=== PATIENT | female | born 1950 | race Caucasian/White ===

== ENCOUNTER 2017-01-24 03:54 | Inpatient (IN) | payer BC ==
[~2017-01-24] VITALS: Ht 152.4 cm; Wt 90.6 kg
[~2017-01-24 03:54] MED LIST: ABILIFY5 MG PO; ADVAIR 500/501 DISK IH; BYSTOLIC10 MG PO; CLONAZEPAM1 MG PO; DEXILANT60 MG PO; EFFEXOR XR75 MG PO; IMURAN50 MG PO; JANUMET XR 50-1 EAC1 PO; PREDNISONE5 MG PO; REQUIP0.25 MG PO; SPIRIVA1 INHALATI IH; TRAMADOL HCL50 MG PO; VITAMIN D2000 UNIT PO; WELCHOL625 MG PO
[2017-01-24] MEDS ORDERED: FENOFIBRATE145 M1 PO (04:33)
[2017-01-24] MEDS ORDERED: LASIX20 MG PO (04:35)
[2017-01-24] MEDS ORDERED: GLIMEPIRIDE4 MG PO (04:36)
[2017-01-24] MEDS ORDERED: LANTUS 10100 UNITS/ SC (04:37)
[2017-01-24] MEDS ORDERED: NOVOLOG PE100 UNITS/ SC (04:38)
[2017-01-24 04:39] LABS: EOSINOPHIL (%) 0.1 % (0-5); IMMATURE GRANULOCYTE COUNT 0.1 K/uL; INSTRUMENT ABS NEUTROPHIL CT 8.2 K/uL; LYMPHOCYTE COUNT 0.6 K/uL (1.0-2.8); MCH 28.8 PG (29.0-34.0); MCHC 31.4 G/DL (30.0-36.0); MCV 91.9 FL (83-99); MEAN PLAT.VOLUME 10.4 uM^3 (9.5-12.4); MONOCYTE (%) 5.9 % (3-12); MONOCYTE COUNT 0.6 K/uL (0-0.8); NEUTROPHIL (%) 86.5 % (45-76); NEUTROPHIL COUNT 8.2 K/uL (1.8-6.4); PLATELET COUNT 275 K/uL (156-360); RBC DIS.WIDTH-CV 15.5 % (11.8-14.6); RBC DIS.WIDTH-SD 51.8 % (39-53); RED BLOOD COUNT 4.68 M/uL (3.80-5.20); WHITE BLOOD COUNT 9.5 K/uL (4.1-10.2)
[2017-01-24] MEDS ORDERED: PROAIR RESPICL90 MCG IH (04:40)
[2017-01-24 04:48] LABS: CHLORIDE 105 mEq/L (99-109); POTASSIUM 4.3 mEq/L (3.7-5.4); SODIUM 141 mEq/L (136-147)
[2017-01-24 04:50] LABS: GLUCOSE 146 mg/dL (70-99)
[2017-01-24 04:51] LABS: ANION GAP 14 MEQ/L (2-14)
[2017-01-24 04:53] LABS: GFR ESTIMATE (CALCULATED) 48 mL/min/
[2017-01-24 04:54] LABS: UREA NITROGEN (BUN) 14 mg/dL (9-23)
[2017-01-24 05:00] LABS: TROP-I INTERPRETATION NEGATIVE; TROPONIN-I < 0.01 ng/mL (0.0-0.30)
[2017-01-24 07:25] LABS: POINT-OF-CARE METER ID UU13113702
[2017-01-24] MEDS ORDERED: VITAMIN D2000 UNI1 PO (09:01)
[2017-01-24] MEDS ORDERED: REFRESH EYE DR1 EACH BOTH EYES (09:01)
[2017-01-24] MEDS ORDERED: ALIGN4 MG PO (09:04)
[2017-01-24] MEDS ORDERED: ATROVENT 00.5 MG/2.5 IH (09:05)
[2017-01-24 11:32] LABS: POINT-OF-CARE METER ID UU13113702
[2017-01-24 15:28] VITALS: BP 107/55
[2017-01-24 19:32] VITALS: BP 108/61
[2017-01-24 23:54] VITALS: BP 121/62
[2017-01-25 04:15] VITALS: BP 122/69
[2017-01-25 07:20] VITALS: BP 113/56
[2017-01-25 07:28] LABS: ANION GAP 7 MEQ/L (2-14); CHLORIDE 103 MEQ/L (99-109); GFR ESTIMATE (CALCULATED) 53 mL/min/; GLUCOSE 188 mg/dL (70-99); POTASSIUM 5.1 MEQ/L (3.7-5.4); SAMPLE HEMOLYSIS CHECK 0; SAMPLE ICTERIC CHECK 0; SAMPLE LIPEMIA CHECK 0; SODIUM 141 MEQ/L (136-147); UREA NITROGEN (BUN) 21 mg/dL (9-23)
[2017-01-25 08:01] LABS: HEMATOCRIT 40.4 % (36.0-46.0); MCH 28.8 PG (29.0-34.0); MCHC 30.9 G/DL (30.0-36.0); MCV 93.1 FL (83-99); PLATELET COUNT 289 K/uL (156-360); RBC DIS.WIDTH-CV 15.7 % (11.8-14.6); RBC DIS.WIDTH-SD 53.6 % (39-53); RED BLOOD COUNT 4.34 M/uL (3.80-5.20); WHITE BLOOD COUNT 11.3 K/uL (4.1-10.2)
[2017-01-25 08:16] LABS: ALKALINE PHOSPHATASE 39 IU/L (3-129); TOTAL BILIRUBIN 0.3 MG/DL (0.0-1.0)
[2017-01-25 09:07] LABS: DIRECT BILIRUBIN 0.1 mg/dL (0.0-0.3)
[2017-01-25 11:42] VITALS: BP 129/70
[2017-01-25 13:07] LABS: POINT-OF-CARE METER ID UU14162508
[2017-01-25 13:47] LABS: ADD MIUA? YES; BILIRUBIN NEGATIVE; BLOOD MODERATE; COLOR YELLOW ((YELLOW)); GLUCOSE (STRIP) 150; KETONES NEGATIVE; LEUKOCYTES LARGE; NITRITE NEGATIVE; PROTEIN (STRIP) 30; UROBILINOGEN 0.2 MG/DL (0.2-1.0)
[2017-01-25 14:51] LABS: EPITHELIAL CELLS 1+ /HPF; RED BLOOD CELLS 0-5 /HPF (0-5); WHITE BLOOD CELLS TNTC /HPF (0-5)
[2017-01-25 14:52] LABS: BACTERIA NONE SEEN /HPF; CASTS NONE SEEN /LPF; CRYSTALS NONE SEEN; MUCUS NONE SEEN /LPF; OTHER YEAST 3+; UCUL ADDED? YES
[2017-01-25 16:09] VITALS: BP 124/69
[2017-01-25 17:27] LABS: POINT-OF-CARE METER ID UU14162508
[2017-01-25 19:35] VITALS: BP 110/58
[2017-01-25 23:25] VITALS: BP 116/62
[2017-01-26 03:57] VITALS: BP 108/62
[2017-01-26 07:02] LABS: HEMATOCRIT 37.5 % (36.0-46.0); MCH 29.1 PG (29.0-34.0); MCHC 30.9 G/DL (30.0-36.0); MCV 94.2 FL (83-99); MEAN PLAT.VOLUME 10.9 uM^3 (9.5-12.4); PLATELET COUNT 261 K/uL (156-360); RBC DIS.WIDTH-CV 15.8 % (11.8-14.6); RBC DIS.WIDTH-SD 54.8 % (39-53); RED BLOOD COUNT 3.98 M/uL (3.80-5.20); WHITE BLOOD COUNT 9.4 K/uL (4.1-10.2)
[2017-01-26 07:07] VITALS: BP 106/55
[2017-01-26 07:20] LABS: ANION GAP 5 MEQ/L (2-14); CHLORIDE 104 MEQ/L (99-109); GFR ESTIMATE (CALCULATED) 53 mL/min/; GLUCOSE 161 mg/dL (70-99); MAGNESIUM 1.9 mg/dl (1.3-2.7); POTASSIUM 5.1 MEQ/L (3.7-5.4); SAMPLE HEMOLYSIS CHECK 0; SAMPLE ICTERIC CHECK 0; SAMPLE LIPEMIA CHECK 0; SODIUM 140 MEQ/L (136-147); UREA NITROGEN (BUN) 30 mg/dL (9-23)
[2017-01-26 08:10] LABS: INTERNAL CONTROL VALID? YES
[2017-01-26 12:31] VITALS: BP 99/54
[2017-01-26 16:33] VITALS: BP 111/63
[2017-01-26 19:33] VITALS: BP 114/73
[2017-01-26 23:18] VITALS: BP 121/72
[2017-01-27 03:24] VITALS: BP 136/68
[2017-01-27 08:00] VITALS: BP 114/58
[2017-01-27 11:47] LABS: POINT-OF-CARE METER ID UU14162508
[2017-01-27 16:00] VITALS: BP 107/57
[2017-01-27 17:14] LABS: POINT-OF-CARE METER ID UU14162508
[2017-01-27 19:32] VITALS: BP 128/73
[2017-01-27 21:42] LABS: POINT-OF-CARE METER ID UU14162508
[2017-01-27 23:38] VITALS: BP 133/68
[2017-01-28] VITALS (7 sets, daily range): BP systolic 117–179; BP diastolic 57–85
[2017-01-28 07:21] LABS: HEMATOCRIT 38.6 % (36.0-46.0); MCH 29.1 PG (29.0-34.0); MCHC 30.6 G/DL (30.0-36.0); MCV 95.1 FL (83-99); MEAN PLAT.VOLUME 10.3 uM^3 (9.5-12.4); PLATELET COUNT 242 K/uL (156-360); RBC DIS.WIDTH-CV 15.1 % (11.8-14.6); RBC DIS.WIDTH-SD 52.9 % (39-53); RED BLOOD COUNT 4.06 M/uL (3.80-5.20); WHITE BLOOD COUNT 7.5 K/uL (4.1-10.2)
[2017-01-28 07:48] LABS: ANION GAP 5 MEQ/L (2-14); CHLORIDE 100 MEQ/L (99-109); GFR ESTIMATE (CALCULATED) 53 mL/min/; GLUCOSE 135 mg/dL (70-99); SAMPLE HEMOLYSIS CHECK 0; SAMPLE ICTERIC CHECK 0; SAMPLE LIPEMIA CHECK 0; SODIUM 141 MEQ/L (136-147); UREA NITROGEN (BUN) 25 mg/dL (9-23)
[2017-01-28 12:04] LABS: POINT-OF-CARE METER ID UU14162508
[2017-01-28 12:43] LABS: BASE EXCESS 7.4 mEq/L (-3 to +3); BICARBONATE 34.3 mEq/L (22-26); CARBOXY HGB 1.7 % (0-5); METHEMOGLOBIN 1.5 % (0-1.5); PCO2 58 mm Hg (35-45); PO2 73 mm Hg (80-100); pH 7.38 (7.35-7.45)
[2017-01-28 12:47] LABS: COMMENTS - BLOOD GASES A+C+; DEVICE NC; O2 FLOW 3 L/MIN; SITE LR; TOTAL RESP RATE 22 resp/min
[2017-01-28 18:29] LABS: POINT-OF-CARE METER ID UU14162508
[2017-01-29 03:33] VITALS: BP 139/83
[2017-01-29 06:28] LABS: POINT-OF-CARE METER ID UU14162508
[2017-01-29 07:25] LABS: ANION GAP 9 MEQ/L (2-14); CHLORIDE 98 MEQ/L (99-109); GFR ESTIMATE (CALCULATED) 53 mL/min/; GLUCOSE 179 mg/dL (70-99); POTASSIUM 4.6 MEQ/L (3.7-5.4); SAMPLE HEMOLYSIS CHECK 0; SAMPLE ICTERIC CHECK 0; SAMPLE LIPEMIA CHECK 0; SODIUM 140 MEQ/L (136-147); UREA NITROGEN (BUN) 24 mg/dL (9-23)
[2017-01-29 08:00] VITALS: BP 146/79
[2017-01-29 10:25] LABS: POINT-OF-CARE METER ID UU14162508
[2017-01-29 19:52] VITALS: BP 118/64
[2017-01-29 23:48] VITALS: BP 136/72
[2017-01-30 03:43] VITALS: BP 171/91
[2017-01-30 06:36] LABS: POINT-OF-CARE METER ID UU14162508
[2017-01-30 06:55] VITALS: BP 120/88
[2017-01-30 07:37] LABS: HEMATOCRIT 40.4 % (36.0-46.0); MCH 28.9 PG (29.0-34.0); MCHC 30.9 G/DL (30.0-36.0); MCV 93.5 FL (83-99); MEAN PLAT.VOLUME 10.6 uM^3 (9.5-12.4); PLATELET COUNT 268 K/uL (156-360); RBC DIS.WIDTH-CV 14.6 % (11.8-14.6); RED BLOOD COUNT 4.32 M/uL (3.80-5.20); WHITE BLOOD COUNT 7.9 K/uL (4.1-10.2)
[2017-01-30 07:40] VITALS: BP 129/77
[2017-01-30 07:59] LABS: ANION GAP 10 MEQ/L (2-14); CHLORIDE 98 MEQ/L (99-109); GFR ESTIMATE (CALCULATED) > 59 mL/min/; GLUCOSE 131 mg/dL (70-99); POTASSIUM 4.6 MEQ/L (3.7-5.4); SAMPLE HEMOLYSIS CHECK 0; SAMPLE ICTERIC CHECK 0; SAMPLE LIPEMIA CHECK 0; SODIUM 141 MEQ/L (136-147); UREA NITROGEN (BUN) 25 mg/dL (9-23)
[2017-01-30 08:28] LABS: POINT-OF-CARE METER ID UU14162508
[2017-01-30 10:57] VITALS: BP 128/83
[2017-01-30 12:13] LABS: POINT-OF-CARE METER ID UU14162508
[2017-01-30 16:20] VITALS: BP 125/72
[2017-01-30 16:39] LABS: POINT-OF-CARE METER ID UU14162508
[2017-01-30 23:32] VITALS: BP 120/69
[2017-01-31 06:38] LABS: ANION GAP 9 MEQ/L (2-14); CHLORIDE 99 MEQ/L (99-109); GFR ESTIMATE (CALCULATED) > 59 mL/min/; GLUCOSE 167 mg/dL (70-99); POTASSIUM 4.8 MEQ/L (3.7-5.4); SAMPLE HEMOLYSIS CHECK 0; SAMPLE ICTERIC CHECK 0; SAMPLE LIPEMIA CHECK 0; SODIUM 137 MEQ/L (136-147); UREA NITROGEN (BUN) 29 mg/dL (9-23)
[2017-01-31 07:02] VITALS: BP 123/82
[2017-01-31 10:48] VITALS: BP 123/75
[2017-01-31 16:34] VITALS: BP 122/68
[2017-01-31 21:54] LABS: POINT-OF-CARE METER ID UU14162508
[2017-01-31 23:58] VITALS: BP 132/77
[2017-02-01 07:15] VITALS: BP 139/85
[2017-02-01 07:16] LABS: HEMATOCRIT 41.1 % (36.0-46.0); MCH 28.8 PG (29.0-34.0); MCHC 30.9 G/DL (30.0-36.0); MCV 93.2 FL (83-99); MEAN PLAT.VOLUME 10.5 uM^3 (9.5-12.4); NRBC (%) 0.2 /100 WBC (0-0); PLATELET COUNT 244 K/uL (156-360); RBC DIS.WIDTH-CV 14.5 % (11.8-14.6); RBC DIS.WIDTH-SD 49.1 % (39-53); RED BLOOD COUNT 4.41 M/uL (3.80-5.20)
[2017-02-01 07:33] LABS: ANION GAP 8 MEQ/L (2-14); CHLORIDE 99 MEQ/L (99-109); GFR ESTIMATE (CALCULATED) > 59 mL/min/; GLUCOSE 182 mg/dL (70-99); POTASSIUM 4.9 MEQ/L (3.7-5.4); SAMPLE HEMOLYSIS CHECK 0; SAMPLE ICTERIC CHECK 0; SAMPLE LIPEMIA CHECK 0; SODIUM 137 MEQ/L (136-147); UREA NITROGEN (BUN) 30 mg/dL (9-23)
[2017-02-01] MEDS ORDERED: PREDNISONE10 MG PO (12:13)
[2017-02-01] MEDS ORDERED: CEFTIN500 MG PO (12:13)
== END 2017-02-01 11:55 | disposition home or self-care (01) | DRG 189 ==
LOC: EME 03:54 → 2EAST 06:28 → EDOF 06:28 → 2EAST 15:16
PROVIDERS: Emergency Medicine; Family Medicine; Hospitalist; Internal Medicine
DX: J96.01 Acute respiratory failure with hypoxia (principal); J18.9 Pneumonia, unspecified organism; E11.42 Type 2 diabetes mellitus with diabetic polyneuropathy; J44.0 Chronic obstructive pulmonary disease with (acute) lower respiratory infection; J44.1 Chronic obstructive pulmonary disease with (acute) exacerbation; I10 Essential (primary) hypertension; E78.2 Mixed hyperlipidemia; E66.9 Obesity, unspecified; G47.33 Obstructive sleep apnea (adult) (pediatric); K52.9 Noninfective gastroenteritis and colitis, unspecified; K59.00 Constipation, unspecified; Z94.0 Kidney transplant status; Z79.4 Long term (current) use of insulin; Z68.39 Body mass index [BMI] 39.0-39.9, adult; K21.9 Gastro-esophageal reflux disease without esophagitis; Z87.81 Personal history of (healed) traumatic fracture; F33.9 Major depressive disorder, recurrent, unspecified; F41.9 Anxiety disorder, unspecified
CPT/HCPCS: 36600; 71010; 71020; 74176; 80048; 80053; 80076; 81003; 82248; 82803; 82948; 83605; 83735; 83880; 84484; 85025; 85027; 87040; 87070; 87086; 87106; 87205; 87449; 93005; 94640; 94640 76; 94644; 94660; 94799; 97530 GP; 99202; 99281; 99285; J0692; J1100; J1644; J1815; J1956; J2405; J2920; J2930; J3475; J7030; J7050; J7500; J7512; J7644

== ENCOUNTER 2017-12-14 14:42 | Inpatient (IN) | payer BC ==
[~2017-12-14] VITALS: Ht 152.4 cm; Wt 90.0 kg
[~2017-12-14 14:42] MED LIST changes: +ADVAIR 250/501 DISK IH; -ADVAIR 500/501 DISK IH; +ALIGN4 MG PO; +ATROVENT 00.5 MG/2.5 IH; +CEFTIN500 MG PO; +FENOFIBRATE145 M1 PO; +GLIMEPIRIDE4 MG PO; -JANUMET XR 50-1 EAC1 PO; +JANUMET XR 50-1 EACH PO; +LANTUS 10100 UNITS/ SC; +LASIX20 MG PO; +NOVOLOG PE100 UNITS/ SC; +PREDNISONE10 MG PO; +PROAIR RESPICL90 MCG IH; +REFRESH EYE DR1 EACH BOTH EYES; +VITAMIN D2000 UNI1 PO
[2017-12-14 15:13] LABS: HEMATOCRIT 41.8 % (36.0-46.0); HEMOGLOBIN 13.5 G/DL (11.9-15.5); MCH 29.2 PG (29.0-34.0); MCHC 32.3 G/DL (30.0-36.0); MCV 90.3 FL (83-99); PLATELET COUNT 257 K/uL (156-360); RBC DIS.WIDTH-CV 16.2 % (11.8-14.6); RED BLOOD COUNT 4.63 M/uL (3.80-5.20); WHITE BLOOD COUNT 10.6 K/uL (4.1-10.2)
[2017-12-14 15:22] LABS: CHLORIDE 103 mEq/L (99-109); POTASSIUM 4.7 mEq/L (3.7-5.4); SODIUM 138 mEq/L (136-147)
[2017-12-14 15:24] LABS: GLUCOSE 277 mg/dL (70-99)
[2017-12-14 15:28] LABS: CREATININE 1.1 mg/dL (0.6-1.3); GFR ESTIMATE (CALCULATED) 53 mL/min/
[2017-12-14 15:29] LABS: UREA NITROGEN (BUN) 21 mg/dL (9-23)
[2017-12-14 16:21] LABS: D-DIMER ELISA < 150.00 ng/mLDDU (<230)
[2017-12-14 16:49] LABS: APPEARANCE CLEAR ((CLEAR)); BILIRUBIN NEGATIVE; BLOOD NEGATIVE; COLOR STRAW ((YELLOW)); GLUCOSE (STRIP) >=500; KETONES NEGATIVE; LEUKOCYTES SMALL; NITRITE NEGATIVE; PROTEIN (STRIP) NEGATIVE; SPECIFIC GRAVITY 1.016 (1.000-1.030); UROBILINOGEN 0.2 MG/DL (0.2-1.0)
[2017-12-14 16:51] LABS: BACTERIA RARE /HPF; EPITHELIAL CELLS RARE /HPF; MUCUS TRACE /LPF; RED BLOOD CELLS 0-5 /HPF (0-5); WHITE BLOOD CELLS 40-50 /HPF (0-5)
[2017-12-14 18:17] LABS: BASE EXCESS -0.2 mEq/L (-3 to +3); BICARBONATE 24.8 mEq/L (22-26); CARBOXY HGB 3.6 % (0-5); COMMENTS - BLOOD GASES A+C+; DEVICE RA; METHEMOGLOBIN 0.6 % (0-1.5); PCO2 41 mm Hg (35-45); PO2 65 mm Hg (80-100); SITE RR; TOTAL RESP RATE 22 resp/min; pH 7.39 (7.35-7.45)
[2017-12-14] MEDS ORDERED: JANUMET 50/51 TABLET PO (18:17)
[2017-12-14] MEDS ORDERED: COLACE100 MG PO (18:40)
[2017-12-14 20:47] VITALS: BP 134/80
[2017-12-14 23:35] VITALS: BP 135/70
[2017-12-15 03:50] VITALS: BP 146/79
[2017-12-15 06:34] LABS: HEMATOCRIT 39.5 % (36.0-46.0); HEMOGLOBIN 12.5 G/DL (11.9-15.5); MCH 28.5 PG (29.0-34.0); MCHC 31.6 G/DL (30.0-36.0); PLATELET COUNT 236 K/uL (156-360); RBC DIS.WIDTH-CV 16.2 % (11.8-14.6); RBC DIS.WIDTH-SD 53.1 % (39-53); RED BLOOD COUNT 4.39 M/uL (3.80-5.20); WHITE BLOOD COUNT 9.8 K/uL (4.1-10.2)
[2017-12-15 07:38] LABS: CHLORIDE 104 MEQ/L (99-109); GFR ESTIMATE (CALCULATED) > 59 mL/min/; GLUCOSE 275 mg/dL (70-99); POTASSIUM 4.7 MEQ/L (3.7-5.4); SODIUM 142 MEQ/L (136-147); UREA NITROGEN (BUN) 23 mg/dL (9-23)
[2017-12-15 07:55] VITALS: BP 142/80
[2017-12-15 11:33] VITALS: BP 143/77
[2017-12-15 15:30] VITALS: BP 126/66
[2017-12-15 19:31] VITALS: BP 130/72
[2017-12-16 00:52] VITALS: BP 165/78
[2017-12-16 03:31] VITALS: BP 140/81
[2017-12-16 08:39] VITALS: BP 115/64
[2017-12-16 12:58] VITALS: BP 124/70
[2017-12-16 16:53] VITALS: BP 132/73
[2017-12-16 23:48] VITALS: BP 160/94
[2017-12-17 08:48] VITALS: BP 143/85
[2017-12-17] MEDS ORDERED: CEFTIN250 MG PO (11:51)
[2017-12-17] MEDS ORDERED: LIDODERM 5% P1 PATCH TD (11:52)
[2017-12-17] MEDS ORDERED: PREDNISONE20 MG PO (11:53)
== END 2017-12-17 12:35 | disposition home or self-care (01) | DRG 190 ==
LOC: EME 14:42 → 5SOUTH 18:45 → EDOF 18:45 → ENRESERV 18:47 → 5SOUTH 20:36 → ENPENDDIS 12-17 → 5SOUTH 12-17 12:35
PROVIDERS: Hospitalist; Physician Assistant
DX: J44.1 Chronic obstructive pulmonary disease with (acute) exacerbation (principal); J96.01 Acute respiratory failure with hypoxia; N39.0 Urinary tract infection, site not specified; E11.65 Type 2 diabetes mellitus with hyperglycemia; J44.0 Chronic obstructive pulmonary disease with (acute) lower respiratory infection; J20.9 Acute bronchitis, unspecified; E66.01 Morbid (severe) obesity due to excess calories; E11.22 Type 2 diabetes mellitus with diabetic chronic kidney disease; N18.9 Chronic kidney disease, unspecified; G47.33 Obstructive sleep apnea (adult) (pediatric); E24.2 Drug-induced Cushing's syndrome; I12.9 Hypertensive chronic kidney disease with stage 1 through stage 4 chronic kidney disease, or unspecified chronic kidney disease; K21.9 Gastro-esophageal reflux disease without esophagitis; F32.9 Major depressive disorder, single episode, unspecified; E78.5 Hyperlipidemia, unspecified; F17.210 Nicotine dependence, cigarettes, uncomplicated; Z68.38 Body mass index [BMI] 38.0-38.9, adult; Z94.0 Kidney transplant status; Z90.5 Acquired absence of kidney; Z88.0 Allergy status to penicillin; Z85.41 Personal history of malignant neoplasm of cervix uteri; Z79.52 Long term (current) use of systemic steroids; Z79.4 Long term (current) use of insulin; Z83.3 Family history of diabetes mellitus; Z82.49 Family history of ischemic heart disease and other diseases of the circulatory system; Z80.3 Family history of malignant neoplasm of breast; T38.0X5A Adverse effect of glucocorticoids and synthetic analogues, initial encounter
CPT/HCPCS: 36600; 71046; 71250; 80048; 81003; 82803; 82948; 85027; 85379; 87070; 87077; 87186; 87205; 87502; 93005; 94640; 94640 76; 94644; 94660; 94760; 94799; 99202; 99281; 99285; J1644; J1815; J2920; J2930; J3475; J7030; J7500

== ENCOUNTER 2018-02-28 17:51 | Inpatient (IN) | payer BC ==
[~2018-02-28] VITALS: Ht 152.4 cm; Wt 95.1 kg
[~2018-02-28 17:51] MED LIST changes: +CEFTIN250 MG PO; +COLACE100 MG PO; +JANUMET 50/51 TABLET PO; +LIDODERM 5% P1 PATCH TD; +PREDNISONE20 MG PO
[2018-02-28 18:38] LABS: HEMATOCRIT 40.4 % (36.0-46.0); MCH 29.5 PG (29.0-34.0); MCHC 32.2 G/DL (30.0-36.0); MCV 91.8 FL (83-99); NRBC (%) 0.2 /100 WBC (0-0); PLATELET COUNT 237 K/uL (156-360); RBC DIS.WIDTH-CV 16.8 % (11.8-14.6); RBC DIS.WIDTH-SD 56.9 % (39-53); WHITE BLOOD COUNT 10.4 K/uL (4.1-10.2)
[2018-02-28 19:09] LABS: CHLORIDE 103 MEQ/L (99-109); CREATININE 1.1 MG/DL (0.6-1.3); GFR ESTIMATE (CALCULATED) 53 mL/min/; GLUCOSE 95 mg/dL (70-99); POTASSIUM 3.9 MEQ/L (3.7-5.4); SODIUM 139 MEQ/L (136-147); UREA NITROGEN (BUN) 14 mg/dL (9-23)
[2018-02-28 20:36] LABS: CARBON DIOXIDE (BICARBONATE) 32.1 MEQ/L (20-31)
[2018-02-28 20:58] LABS: TROP-I INTERPRETATION NEGATIVE; TROPONIN-I < 0.01 ng/mL (0.0-0.30)
[2018-02-28] MEDS ORDERED: AZATHIOPRINE50 MG PO (22:49)
[2018-02-28] MEDS ORDERED: ULTRAM50 MG PO (22:49)
[2018-02-28] MEDS ORDERED: KLONOPIN1 MG PO (22:50)
[2018-02-28] MEDS ORDERED: BYSTOLIC10 MG PO (22:51)
[2018-02-28] MEDS ORDERED: OMEPRAZOLE40 M1 PO (22:51)
[2018-02-28] MEDS ORDERED: DIFLUCAN100 MG PO (22:52)
[2018-02-28] MEDS ORDERED: WELCHOL625 MG PO (22:52)
[2018-02-28] MEDS ORDERED: ANTIVERT25 MG PO (22:53)
[2018-02-28] MEDS ORDERED: ADVAIR 500/501 DISK IH (22:53)
[2018-02-28] MEDS ORDERED: LASIX20 MG PO (22:53)
[2018-02-28] MEDS ORDERED: SPIRIVA18 MCG IH (22:54)
[2018-02-28] MEDS ORDERED: VITAMIN D32000 UNI1 PO (22:54)
[2018-02-28] MEDS ORDERED: VITAMIN E100 UNIT PO (22:55)
[2018-02-28] MEDS ORDERED: AMARYL4 MG PO (22:55)
[2018-02-28] MEDS ORDERED: AMLACTIN140 GM TP (22:56)
[2018-02-28] MEDS ORDERED: LANTUS 10100 UNITS/ SC (22:56)
[2018-02-28] MEDS ORDERED: HUMALOG100 UNIT/1 SC ×4 (22:58→22:59)
[2018-02-28] MEDS ORDERED: PROAIR HFA8.5 GM IH (22:59)
[2018-02-28] MEDS ORDERED: ALIGN4 MG PO (23:00)
[2018-02-28] MEDS ORDERED: JANUMET XR 50-1 EAC1 PO (23:00)
[2018-02-28] MEDS ORDERED: ATROVENT 00.5 MG/2.5 IH (23:00)
[2018-02-28] MEDS ORDERED: NEURONTIN100 MG PO (23:01)
[2018-02-28] MEDS ORDERED: PREDNISONE10 MG PO (23:01)
[2018-02-28] MEDS ORDERED: TRICOR145 MG PO (23:02)
[2018-02-28 23:13] LABS: BASE EXCESS 2.6 mEq/L (-3 to +3); BICARBONATE 29.3 mEq/L (22-26); CARBOXY HGB 2.6 % (0-5); COMMENTS - BLOOD GASES C+; DEVICE CPAP; O2 FLOW 3 L/MIN; PCO2 53 mm Hg (35-45); PO2 73 mm Hg (80-100); SITE RR; TOTAL RESP RATE 16 resp/min; pH 7.35 (7.35-7.45)
[2018-03-01 01:00] VITALS: BP 121/64
[2018-03-01 04:00] VITALS: BP 130/69
[2018-03-01 08:03] VITALS: BP 156/68
[2018-03-01 12:03] VITALS: BP 125/67
[2018-03-01 16:26] VITALS: BP 114/66
[2018-03-01 19:48] VITALS: BP 167/80
[2018-03-02] VITALS (7 sets, daily range): BP systolic 118–175; BP diastolic 57–87
[2018-03-02 06:45] LABS: HEMATOCRIT 38.7 % (36.0-46.0); HEMOGLOBIN 12.3 G/DL (11.9-15.5); MCH 29.5 PG (29.0-34.0); MCHC 31.8 G/DL (30.0-36.0); MCV 92.8 FL (83-99); PLATELET COUNT 247 K/uL (156-360); RBC DIS.WIDTH-CV 16.8 % (11.8-14.6); RBC DIS.WIDTH-SD 56.9 % (39-53); RED BLOOD COUNT 4.17 M/uL (3.80-5.20); WHITE BLOOD COUNT 10.9 K/uL (4.1-10.2)
[2018-03-02 07:14] LABS: CHLORIDE 106 MEQ/L (99-109); GFR ESTIMATE (CALCULATED) 59 mL/min/; MAGNESIUM 1.8 mg/dl (1.3-2.7); SODIUM 143 MEQ/L (136-147)
[2018-03-02 07:15] LABS: GLUCOSE 201 mg/dL (70-99); UREA NITROGEN (BUN) 25 mg/dL (9-23)
[2018-03-03 04:28] VITALS: BP 133/74
[2018-03-03 07:30] VITALS: BP 127/75
[2018-03-03 11:38] VITALS: BP 125/68
[2018-03-03 15:17] VITALS: BP 127/76
[2018-03-03] MEDS ORDERED: FENOFIBRATE145 M1 PO (16:38)
[2018-03-03 19:18] VITALS: BP 132/72
[2018-03-03 23:58] VITALS: BP 139/83
[2018-03-04 03:56] VITALS: BP 137/76
[2018-03-04 06:19] LABS: BASOPHIL (%) 0.2 % (0-1); EOSINOPHIL (%) 0 % (0-5); HEMATOCRIT 42.2 % (36.0-46.0); HEMOGLOBIN 12.9 G/DL (11.9-15.5); IMMATURE GRANULOCYTE (%) 1.6 % (0.0-0.7); LYMPHOCYTE (%) 5.4 % (15-42); LYMPHOCYTE COUNT 0.6 K/uL (1.0-2.8); MCH 28.7 PG (29.0-34.0); MCHC 30.6 G/DL (30.0-36.0); MONOCYTE (%) 5.4 % (3-12); MONOCYTE COUNT 0.6 K/uL (0-0.8); NEUTROPHIL (%) 87.4 % (45-76); PLATELET COUNT 272 K/uL (156-360); RBC DIS.WIDTH-CV 16.7 % (11.8-14.6); RBC DIS.WIDTH-SD 57.1 % (39-53); RED BLOOD COUNT 4.49 M/uL (3.80-5.20); WHITE BLOOD COUNT 10.3 K/uL (4.1-10.2)
[2018-03-04 06:43] LABS: CHLORIDE 103 MEQ/L (99-109); GFR ESTIMATE (CALCULATED) 59 mL/min/; GLUCOSE 139 mg/dL (70-99); POTASSIUM 4.5 MEQ/L (3.7-5.4); SODIUM 144 MEQ/L (136-147); UREA NITROGEN (BUN) 27 mg/dL (9-23)
[2018-03-04 07:44] VITALS: BP 133/76
[2018-03-04 15:22] VITALS: BP 129/77
[2018-03-05 00:05] VITALS: BP 137/81
[2018-03-05 08:16] VITALS: BP 137/65
[2018-03-05 16:46] VITALS: BP 120/77
[2018-03-06 00:06] VITALS: BP 156/85
[2018-03-06 07:47] VITALS: BP 132/84
[2018-03-06 15:45] VITALS: BP 142/84
[2018-03-06] MEDS ORDERED: NICOTINE PATCH1 EAC1 TD (17:01)
[2018-03-06] MEDS ORDERED: PREDNISONE5 MG PO (17:02)
== END 2018-03-06 18:32 | disposition home health service (06) | DRG 190 ==
LOC: EME 17:51 → 5SOUTH 03-01 → EDOF 03-01 → ENRESERV 03-01 00:01 → 5SOUTH 03-01 00:45
PROVIDERS: Emergency Medicine; Hospitalist; Internal Medicine; Physician Assistant
PROC: 5A09357 Assistance with Respiratory Ventilation, Less than 24 Consecutive Hours, Continuous Positive Airway Pressure (ICD-10-PCS; principal; 2018-03-01)
DX: J44.1 Chronic obstructive pulmonary disease with (acute) exacerbation (principal); J96.21 Acute and chronic respiratory failure with hypoxia; J96.22 Acute and chronic respiratory failure with hypercapnia; E87.2 Acidosis; G47.33 Obstructive sleep apnea (adult) (pediatric); I10 Essential (primary) hypertension; E11.9 Type 2 diabetes mellitus without complications; F32.9 Major depressive disorder, single episode, unspecified; E78.5 Hyperlipidemia, unspecified; K21.9 Gastro-esophageal reflux disease without esophagitis; F17.200 Nicotine dependence, unspecified, uncomplicated; H54.61 Unqualified visual loss, right eye, normal vision left eye; E66.9 Obesity, unspecified; Z68.41 Body mass index [BMI] 40.0-44.9, adult; Z85.41 Personal history of malignant neoplasm of cervix uteri; Z90.5 Acquired absence of kidney; Z94.0 Kidney transplant status; Z79.4 Long term (current) use of insulin; Z88.0 Allergy status to penicillin
CPT/HCPCS: 36600; 70450; 71046; 73030; 80048; 82803; 82948; 83735; 83880; 84484; 85025; 85027; 85379; 90732; 93005; 94640; 94640 76; 94660; 94760; 94799; 99281; 99285; G0009; J0692; J1644; J1815; J1956; J2920; J2930; J3475; J7500; J7512